=== PATIENT | male | born 1965 | race Caucasian/White ===

== ENCOUNTER 2016-04-11 03:13 | Emergency (ER) | payer MEDICAID ==
[~2016-04-11] VITALS: Ht 180.3 cm; Wt 99.8 kg
[~2016-04-11 03:13] MED LIST: ACETAMINOP160 MG/53 ORAL; AMPICILLIN SOD500 MG IJ; AMPICILLIN250 MG PO; ATIVAN2 MG ORAL; CEFTAZIDIM2 GM/50 ML IV; CLOTRIMAZOLE15 GM TOPIC; CRANBERRY JUIC425 MG PO; CRANBERRY425 MG PO; CYMBALTA30 MG ORAL; DEPAKENE250 MG ORAL; DILAUDID2 MG ORAL; DILAUDID4 MG ORAL; DOCUSATE SODIU250 MG ORAL; FENTANYL1 EACH TDERMAL; FOLIC ACID1 MG ORAL; KADIAN30 MG PO; KEFLEX500 M1 PO; KEPPRA500 MG ORAL; LIPITOR10 MG ORAL; MIRALAX17 G2 ORAL; MISOPROSTOL100 MCG PO; MS CONTIN30 MG ORAL; MULTIVITAMINS1 EA13 ORAL; NEURONTIN800 MG ORAL; NEXIUM40 MG ORAL; NORCO 10/3251 EA ORAL; NORCO 5-325 TA1 EAC1 ORAL; NORVASC5 MG ORAL; PEPCID20 MG ORAL; PROTONIX40 MG ORAL; RESTORIL15 MG ORAL; ROBITUSSIN DM5 ML PO; SENNA8.6 M3 PO; TRAZODONE HCL50 MG ORAL; VENLAFAXINE H37.5 MG ORAL; VITAMIN B-1100 MG ORAL; VITAMIN C500 M1 ORAL; XARELTO10 MG ORAL; ZESTRIL20 MG ORAL; ZOLPIDEM TARTRAT5 MG ORAL
[2016-04-11] MEDS ORDERED: Morphine Sulfate 4mg/ml Inj ONE (03:19)
[2016-04-11 03:30] VITALS: BP 153/92
[2016-04-11] MEDS ORDERED: Morphine Sulfate 4mg/ml Inj IM ONE (03:30)
--- NOTE | 2016-04-11 03:33 | Emergency Room Report ---
History of Present Illness General Chief Complaint: Male Urogenital Problems Source: Patient, Medical Record Present Illness HPI 51 YO M c/o suprapubic pain, "crystals in my catheter" and "clogged" catheter. Patient only "been drinking scotch for 4 days," not enough water. Denies fever/ chills, flank pain, nausea/vomiting, diarrhea. Has had suprapubic cath for 1 month. Has had "since the accident." Allergies: Coded Allergies: METHYLPHENIDATE (Unverified Allergy, Severe, rash, 01/27/14) Patient History Past Medical History: see triage record, old chart reviewed Past Surgical History: other - suprapubic cath Pertinent Family History: none Social History: Reports: alcohol use Immunizations: UTD Reviewed Nursing Documentation: PMH: Agreed, PSxH: Agreed Nursing Documentation-PMH Past Medical History: No History, Except For Hx Hypertension: Yes Hx COPD: Yes Hx Cancer: No Hx Gastrointestinal Problems: Yes - GERD History Of Psychiatric Problem: Yes - depression Hx Neurological Problems: Yes - PARAPLEGIA S/P SPINAL CORD INJURY Hx Seizures: Yes Hx Weakness: Yes Review of Systems All Other Systems: negative except mentioned in HPI Physical Exam Vital Signs Date Time Temp Pulse Resp B/P Pulse Ox O2 Delivery O2 Flow Rate FiO2 04/11/16 03:03 97.5 100 16 158/94 100 Room Air Sp02 EP Interpretation: reviewed, normal General Appearance: normal inspection, well appearing, no apparent distress, alert Head: normocephalic, atraumatic Eyes: bilateral eye EOMI, bilateral eye PERRL ENT: normal ENT inspection, hearing grossly normal, normal voice Neck: normal inspection, full range of motion, supple, no bony tend Respiratory: normal inspection, lungs clear, normal breath sounds, no respiratory distress, no retraction, no wheezing Cardiovascular #1: regular rate, rhythm, no edema Gastrointestinal: normal inspection, normal bowel sounds, non tender, soft, no guarding, no hernia, other - Suprapubic catheter in place: On bedside sono, olivares balloon not visualized in bladder. Bladder is largely distended. 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 VSS. Afebrile. Patient repeatedly yelling profanity, attempting to hit staff, demanding IM morphine or dilaudid I was able to clear sediment with repeated flushing, aspiration of catheter and then urine easily draining I reinflated balloon in sterile procedure and balloon was visualized within bladder On serial exam, bladder non-distended, soft. Urine flowing easily Patient feels much better. UA with TNTC bacteria, LE Will tx for infection with Doxy DC back to [facility] Last Vital Signs Date Time Temp Pulse Resp B/P Pulse Ox O2 Delivery O2 Flow Rate FiO2 04/11/16 03:03 97.5 100 16 158/94 100 Room Air Status: improved Disposition: XFER [facility] Scripts Doxycycline Monohydrate* (DOXYCYCLINE MONOHYDRATE*) 100 Mg Capsule 100 MG ORAL Q12H, #14 CAP 0 Refills Prov: BUDDY LEDEZMA M.D. 04/11/16 Referrals: NON PHYSICIAN (PCP) BUDDY LEDEZMA M.D. Apr 11, 2016 03:33
[2016-04-11 03:41] LABS: APPEARANCE,URINE SLIGHTLY CLOUDY; KETONES,URINE 3+ (NEGATIVE); LEUKOCYTE ESTERASE ,URINE 3+ (NEGATIVE); NITRITE,URINE NEGATIVE (NEGATIVE); PH,URINE 7 (4.5-8.0); PROTEIN,URINE 3+ (NEGATIVE); UROBILINOGEN,URINE 4 MG/DL (0.0-1.0)
[2016-04-11] MEDS ORDERED: DILAUDID8 MG PO (03:43)
[2016-04-11] MEDS ORDERED: ATIVAN1 MG ORAL (03:43)
[2016-04-11] MEDS ORDERED: SODIUM CHLORIDE1 GM PO (03:43)
[2016-04-11] MEDS ORDERED: COLACE100 MG ORAL (03:43)
[2016-04-11] MEDS ORDERED: ACETAMINOPHEN-1 EAC1 ORAL (03:43)
[2016-04-11] MEDS ORDERED: CALCIUM CARBON500 M1 PO (03:43)
[2016-04-11] MEDS ORDERED: BACLOFEN10 MG ORAL (03:43)
[2016-04-11] MEDS ORDERED: ZOFRAN ODT4 MG ORAL (03:43)
[2016-04-11] MEDS ORDERED: VITAMIN B-1100 MG ORAL (03:43)
[2016-04-11] MEDS ORDERED: NEURONTIN800 MG ORAL (03:43)
[2016-04-11] MEDS ORDERED: LIPITOR10 MG ORAL (03:43)
[2016-04-11 03:54] LABS: RBC,URINE 20-30 /HPF (0 - 0); WBC,URINE TNTC /HPF (0 - 0)
[2016-04-11 03:55] LABS: AMORPHOUS SEDIMENT,UR FEW /LPF; BACTERIA,URINE MANY /HPF; SQUAMOUS EPITHELIAL CELL,UR OCCASIONAL /LPF (NONE/OCC)
[2016-04-11] MEDS ORDERED: DOXYCYCLINE MO100 MG ORAL (04:08)
[2016-04-11 04:43] VITALS: BP 150/68
== END 2016-04-11 04:43 ==
LOC: EDBD 03:13 → EMR 03:22
DX: N31.9 Neuromuscular dysfunction of bladder, unspecified (principal); T83.090A Other mechanical complication of cystostomy catheter, initial encounter; Y84.6 Urinary catheterization as the cause of abnormal reaction of the patient, or of later complication, without mention of misadventure at the time of the procedure; Y92.129 Unspecified place in nursing home as the place of occurrence of the external cause; Z76.5 Malingerer [conscious simulation]; J44.9 Chronic obstructive pulmonary disease, unspecified; K21.9 Gastro-esophageal reflux disease without esophagitis; I10 Essential (primary) hypertension; G82.20 Paraplegia, unspecified; F32.9 Major depressive disorder, single episode, unspecified
CPT/HCPCS: 81003; 87086; 87181; 96372; 99283; J2270